=== PATIENT | female | born 1990 | race Caucasian/White ===

== ENCOUNTER 2021-03-15 20:01 | Inpatient (IN) ==
[2021-03-15] MEDS ORDERED: Buffered Lidocaine 1% SYRIN 1 ml INTRADERM ONE (21:00)
[2021-03-15] MEDS ORDERED: Lactated Ringers 1000 ml BAG 1,000 ML IV ONE (21:00)
[2021-03-15] MEDS ORDERED: Lactated Ringers 1000 ml BAG 1,000 ML IV SCH ×2 (21:00→22:00)
[2021-03-15 21:09] LABS: ABS Lymphocytes 1.2 10^3/ul (1.0-4.8); ABS Monocytes 0.9 10^3/ul (0-0.8); ABS Neutrophils 16.7 10^3/ul (1.5-7.7); Hematocrit 40 % (35-47); Hemoglobin 13.5 g/dL (12.0-16.0); Lymphocyte % 6.4 %; Mean Corpuscular HGB Conc 34 g/dL (31-36); Mean Corpuscular Hemoglobin 29 pg (27-31); Mean Corpuscular Volume 87 fL (80-97); Mean Platelet Volume 9.7 fL (7.4-10.4); Platelet Count 223 10^3/uL (150-450); Red Blood Count 4.61 10^6 /uL (3.70-4.87); Red Cell Distribution Width 14 % (10-15); White Blood Count 18.9 10^3/uL (3.5-10.8)
[2021-03-15] MEDS ORDERED: Oxytocin in LR 20 UNITS/1,000 ML BAG IVPB ONE (21:19)
[2021-03-15] MEDS ORDERED: Glycerin ADULT 2.4 gm SUPP PR PRN (21:36)
[2021-03-15] MEDS ORDERED: RHO D Immune Globulin (HUMAN) 300 MCG = 1,500 I.U. INJ IM PRN (21:36)
[2021-03-15] MEDS ORDERED: Oxytocin 10 UNITS/ML 1 ML VIAL IM ONE (21:36)
[2021-03-15] MEDS ORDERED: Witch Hazel PAD JAR TOPICAL PRN (21:36)
[2021-03-15] MEDS ORDERED: Dibucaine 1% OINT 28.35 GM TUBE PR PRN (21:36)
[2021-03-15] MEDS ORDERED: Oxytocin in LR 20 UNITS/1,000 ML BAG IVPB SCH (22:00)
[2021-03-16] MEDS ORDERED: Lidocaine 1% VIAL 10 MG/ML VIAL ONE (00:37)
[2021-03-16 00:58] LABS: Urine Benzodiazepine Screen None Detected (None Detect); Urine Cannabinoids Screen None Detected (None Detect); Urine Opiates Screen None Detected (None Detect)
[2021-03-16 06:50] LABS: ABS Basophils 0.1 10^3/ul (0-0.2); ABS Lymphocytes 2.2 10^3/ul (1.0-4.8); ABS Monocytes 1.4 10^3/ul (0-0.8); ABS Neutrophils 13.5 10^3/ul (1.5-7.7); Hematocrit 35 % (35-47); Hemoglobin 12.1 g/dL (12.0-16.0); Lymphocyte % 13.1 %; Mean Corpuscular HGB Conc 34 g/dL (31-36); Mean Corpuscular Hemoglobin 30 pg (27-31); Mean Corpuscular Volume 89 fL (80-97); Mean Platelet Volume 9.6 fL (7.4-10.4); Platelet Count 217 10^3/uL (150-450); Red Cell Distribution Width 14 % (10-15); White Blood Count 17.2 10^3/uL (3.5-10.8)
[2021-03-17 08:29] VITALS: BP 118/81
== END 2021-03-17 11:00 | disposition home or self-care (01) | DRG 560 ==
LOC: MCHOBOUT 20:01 → MCHOB 20:05
PROVIDERS: ADMIT Obstetrics & Gynecology; ATTEND Obstetrics & Gynecology